=== PATIENT | female | born 1990 | race Caucasian/White ===

== ENCOUNTER 2024-06-04 21:22 | Emergency (ER) | payer OTHER ==
[~2024-06-04] VITALS: Ht 175.3 cm; Wt 97.5 kg
[2024-06-04 21:45] VITALS: BP_SYST 144; PULSE 83; RESP 18; TEMP 98.9; O2SAT 99
[2024-06-04 22:21] LABS: INFLUENZA TYPE A Negative (NEGATIVE); INFLUENZA TYPE B NEGATIVE (NEGATIVE)
[2024-06-04] MEDS ORDERED: NIRM1TAB9 PO (22:33)
[2024-06-04 22:42] VITALS: BP_SYST 139; PULSE 85; RESP 18; O2SAT 98
== END 2024-06-04 22:39 | disposition home or self-care (01) ==
LOC: SED 21:22
DX: O98.519 Other viral diseases complicating pregnancy, unspecified trimester (principal); U07.1 COVID-19; Z3A.00 Weeks of gestation of pregnancy not specified
CPT/HCPCS: 36415; 81025; 99283